=== PATIENT | female | born 1950 | race Two or more races ===

== ENCOUNTER 2019-05-14 08:53 | Outpatient (CLI) | payer OTHER ==
[2019-05-14] MEDS ORDERED: PLAQUENIL (11:22)
[2019-05-14] MEDS ORDERED: TRENTAL (11:22)
[2019-05-14] MEDS ORDERED: ZESTRIL10 M1 PO (12:31)
== END 2019-05-14 15:00 | disposition home or self-care (01) ==
LOC: LAB 08:53
DX: D64.89 Other specified anemias (principal); E88.89 Other specified metabolic disorders; D68.8 Other specified coagulation defects; N39.0 Urinary tract infection, site not specified; Z22.322 Carrier or suspected carrier of Methicillin resistant Staphylococcus aureus; I49.8 Other specified cardiac arrhythmias; I10 Essential (primary) hypertension; Z76.89 Persons encountering health services in other specified circumstances

== ENCOUNTER 2019-06-29 11:51 | Outpatient (CLI) | payer OTHER ==
[~2019-06-29 11:51] MED LIST: PLAQUENIL; TRENTAL; ZESTRIL10 M1 PO
== END 2019-06-29 11:56 | disposition home or self-care (01) ==
LOC: RAD 11:51
DX: M25.562 Pain in left knee (principal)

== ENCOUNTER 2020-04-04 06:55 | Outpatient (CLI) | payer OTHER ==
[2020-04-04] MEDS ORDERED: PEPCID AC20 MG PO (14:39)
[2020-04-04] MEDS ORDERED: ECOTRIN81 MG PO (14:39)
[2020-04-08] MEDS ORDERED: SIMVASTATIN20 MG PO (15:19)
[2020-04-08] MEDS ORDERED: PENTOXIFYLLINE400 MG PO (15:33)
== END 2020-04-04 07:08 | disposition home or self-care (01) ==
LOC: LAB 06:55
PROVIDERS: ATTEND Orthopaedic Surgery
DX: D64.89 Other specified anemias (principal); E88.89 Other specified metabolic disorders; D68.8 Other specified coagulation defects; N39.0 Urinary tract infection, site not specified; Z22.322 Carrier or suspected carrier of Methicillin resistant Staphylococcus aureus; Z76.89 Persons encountering health services in other specified circumstances; I49.8 Other specified cardiac arrhythmias; I10 Essential (primary) hypertension

== ENCOUNTER 2020-04-07 17:19 | Outpatient (CLI) | payer OTHER ==
[~2020-04-07 17:19] MED LIST changes: +ECOTRIN81 MG PO; +PEPCID AC20 MG PO
[2020-04-08] MEDS ORDERED: SIMVASTATIN20 MG PO (15:19)
[2020-04-08] MEDS ORDERED: PENTOXIFYLLINE400 MG PO (15:33)
== END 2020-04-07 17:24 | disposition home or self-care (01) ==
LOC: LAB 17:19
PROVIDERS: ATTEND Orthopaedic Surgery
DX: Z03.818 Encounter for observation for suspected exposure to other biological agents ruled out (principal)

== ENCOUNTER 2020-04-12 06:05 | Day surgery (SDC) | payer OTHER ==
[~2020-04-12 06:05] MED LIST changes: +PENTOXIFYLLINE400 MG PO; +SIMVASTATIN20 MG PO
== END 2020-04-12 15:50 | disposition home or self-care (01) ==
LOC: CIR.AMB 06:05
PROVIDERS: ATTEND Orthopaedic Surgery
DX: M23.322 Other meniscus derangements, posterior horn of medial meniscus, left knee (principal); M12.262 Villonodular synovitis (pigmented), left knee; M22.42 Chondromalacia patellae, left knee

== ENCOUNTER 2020-04-29 07:48 | Outpatient (CLI) | payer OTHER | END 2020-04-29 07:52 | disposition home or self-care (01) | LOC: NUCLEAR 07:48 | PROVIDERS: ATTEND Orthopaedic Surgery | DX: M79.605 Pain in left leg (principal) ==